=== PATIENT | male | born 1970 | race African-American/Black ===

== ENCOUNTER 2016-12-22 10:40 | Emergency (ER) | payer SELFPAY ==
[~2016-12-22] VITALS: Ht 177.8 cm; Wt 78.0 kg
[2016-12-22] MEDS ORDERED: SODIUM CHLORIDE 0.9% 1,000 ML IV ONE (11:30)
[2016-12-22] MEDS ORDERED: ONDANSETRON HCL 4MG/2ML VIAL IV ONE (11:30)
[2016-12-22 12:01] LABS: HEMATOCRIT. 49.2 % (42.0-52.0); HEMOGLOBIN. 17.1 g/dL (14.0-18.0); MEAN CORPUSCULAR HEMOGLOBIN 30.5 pg (28.0-32.0); MEAN CORPUSCULAR HGB CONC 34.8 g/dL (31.0-37.0); MEAN CORPUSCULAR VOLUME 87.5 fL (80.0-94.0); MEAN PLATELET VOLUME 8.1 fl (7.4-10.4); PLATELET 221 x1000/uL (130-400); RED BLOOD CELL COUNT 5.62 mill/uL (4.7-6.1); RED CELL DISTRIBUTION WIDTH 12.5 % (11.6-14.6)
[2016-12-22 12:02] LABS: DIFFERENTIAL COMMENT 1
[2016-12-22 12:15] LABS: ALANINE AMINOTRANSFERASE 35 IU/L (13-61); ALBUMIN 4.7 g/dL (3.4-5.0); ANION GAP 19; CALCIUM 9.5 mg/dL (8.5-10.1); CARBON DIOXIDE 22 mEq/L (21-32); CHLORIDE 94 mEq/L (98-107); INDEX HEMOLYSI 4 (1-3); INDEX ICTERIC 2 (1-4); INDEX LIPEMIC 1 (1-3); LIPASE 613 IU/L (73-393); UREA NITROGEN BLOOD 25 mg/dL (7-21); eGFR > 60 mL/min (>60)
[2016-12-22 12:17] LABS: PLATELET ESTIMATE NORMAL
[2016-12-22 14:21] VITALS: BP 146/90
== END 2016-12-22 14:35 | disposition home or self-care (01) ==
LOC: ER 11:59
DX: K85.90 Acute pancreatitis without necrosis or infection, unspecified (principal); F17.210 Nicotine dependence, cigarettes, uncomplicated; F12.10 Cannabis abuse, uncomplicated
CPT/HCPCS: 36415; 76705; 80053; 83690; 85025; 96361; 96374; 99285; J2405; J7030; Z7610